=== PATIENT | female | born 1950 | race Caucasian/White ===

== ENCOUNTER 2022-12-27 00:26 | Emergency (ER) | payer OTHER ==
[2022-12-27] MEDS ORDERED: Metoprolol Tartrate 5 MG/5 ML VIAL ONE (01:13)
[2022-12-27 01:15] LABS: #Eosinphils 0.1 thou/uL (0.0-0.7); #Monocytes 0.6 thou/uL (0.11-0.59); #Neutrophils 5.5 thou/uL (1.40-6.50); %Basophils 0.6 % (0.0-1.0); %Eosinophils 1.1 % (0.0-10.0); %Lymphocytes 12.6 % (21.0-51.0); %Monocytes 8.2 % (0.0-10.0); %Neutrophils 77.4 % (42.0-75.0); Hematocrit 45.9 % (36.0-47.0); Hemoglobin 15.4 g/dL (12.0-16.0); Mean Corpuscular HGB CONC 33.6 g/dL (32.0-36.0); Mean Corpuscular Hemoglobin 32.2 pg (27.0-31.0); Mean Corpuscular Volume 95.8 fl (78.0-98.0); Mean Platelet Volume 9.4 fL (7.4-10.4); Platelet Count 242 10x3/uL (130-400); RBC Distribution Width 11.9 % (11.5-14.5); Red Blood Cell (RBC) Count 4.79 mill/uL (4.20-5.40); White Blood Cell (WBC) Count 7.1 10x3/uL (4.8-10.8)
[2022-12-27] MEDS ORDERED: dilTIAZem 25 MG/5 ML VIAL ONE (01:42)
[2022-12-27 01:50] LABS: Troponin I Less than 0.010 ng/mL (< 0.028)
[2022-12-27 02:37] LABS: Albumin 4.5 g/dL (3.4-4.8)
[2022-12-27 02:38] LABS: Chloride 112 mmol/L (98-107); Potassium 4.8 mmol/L (3.5-5.1); Sodium 142 mmol/L (136-145)
[2022-12-27 02:39] LABS: Calcium 9.7 mg/dL (7.8-10.44); Glucose 115 mg/dL (83-110)
[2022-12-27 02:40] LABS: Globulin 3.5 g/dL (2.4-3.5)
[2022-12-27 02:41] LABS: Anion Gap 15 mmol/L (10-20); Bilirubin, Total 0.4 mg/dL (0.2-1.2); Carbon Dioxide 20 mmol/L (23-31)
[2022-12-27 02:42] LABS: Alkaline Phosphatase 109 U/L (40-110)
[2022-12-27 02:43] LABS: Calc. Creatinine Clearance 0 mL/min (70-130); Estimated GFR 61
[2022-12-27 02:44] LABS: AST (SGOT) 41 U/L (5-34); BUN (Urea Nitrogen) 14 mg/dL (9.8-20.1)
[2022-12-27 02:45] LABS: ALT (SGPT) 24 U/L (8-55)
== END 2022-12-27 03:45 | disposition home or self-care (01) ==
LOC: ERS 00:26
DX: I48.91 Unspecified atrial fibrillation (principal)
CPT/HCPCS: 36415; 71045; 80053; 84484; 85025; 93005; 96374